=== PATIENT | female | born 1995 ===

== ENCOUNTER 2020-07-08 14:20 | Outpatient (CLI) | payer OTHER | END 2020-07-08 15:20 | disposition home or self-care (01) | LOC: OFIC 805 14:20 | PROVIDERS: ATTEND Otolaryngology Otology & Neurotology | DX: R49.0 Dysphonia (principal); T16.2XXA Foreign body in left ear, initial encounter; H92.02 Otalgia, left ear; J02.8 Acute pharyngitis due to other specified organisms ==